=== PATIENT | female | born 1990 ===

== ENCOUNTER 2021-02-24 10:36 | Emergency (ER) | payer OTHER ==
[~2021-02-24] VITALS: Ht 154.9 cm; Wt 79.4 kg
== END 2021-02-24 17:07 | disposition home or self-care (01) ==
LOC: ER 10:36
DX: O26.851 Spotting complicating pregnancy, first trimester (principal); O36.80X1 Pregnancy with inconclusive fetal viability, fetus 1; Z34.01 Encounter for supervision of normal first pregnancy, first trimester

== ENCOUNTER 2021-03-26 00:01 | Emergency (ER) | payer OTHER ==
[~2021-03-26] VITALS: Ht 154.9 cm; Wt 77.1 kg
[2021-03-26] MEDS ORDERED: ACETAMINOPHEN650 M2 PO (06:35)
[2021-04-04] MEDS ORDERED: ACETAMINOPHEN650 M2 (23:10)
== END 2021-03-26 06:51 | disposition home or self-care (01) ==
LOC: ER 00:01
DX: N93.9 Abnormal uterine and vaginal bleeding, unspecified (principal)

== ENCOUNTER 2021-04-15 23:21 | Emergency (ER) | payer OTHER ==
[~2021-04-15] VITALS: Ht 152.4 cm; Wt 79.4 kg
[~2021-04-15 23:21] MED LIST: ACETAMINOPHEN650 M2; ACETAMINOPHEN650 M2 PO
[2021-04-15] MEDS ORDERED: FOLIC ACID0.8 M1 (23:52)
[2021-04-15] MEDS ORDERED: PRENA1 CHEW TA1.4 MG (23:52)
[2021-04-16] MEDS ORDERED: ACETAMINOPHEN650 M2 PO (04:26)
== END 2021-04-16 04:34 | disposition home or self-care (01) ==
LOC: ER 23:21
DX: O26.891 Other specified pregnancy related conditions, first trimester (principal); S39.83XA Other specified injuries of pelvis, initial encounter; Y08.89XA Assault by other specified means, initial encounter; Y93.89 Activity, other specified; Z3A.12 12 weeks gestation of pregnancy; Y92.89 Other specified places as the place of occurrence of the external cause; Y99.8 Other external cause status